=== PATIENT | female | born 1995 | race Two or more races ===

== ENCOUNTER → 2021-05-01 | Emergency (ER) | payer MEDICAID ==
[~2021-05-01] VITALS: Ht 152.4 cm; Wt 67.6 kg
[~2021-05-01] MED LIST: IBUP600T27 PO
[2021-05-01 17:51] VITALS: BP 108/62
== END | disposition home or self-care (01) ==
LOC: ER 17:31
DX: G56.01 Carpal tunnel syndrome, right upper limb (principal)
CPT/HCPCS: 29125

== ENCOUNTER 2021-10-14 19:25 | Emergency (ER) | payer MEDICAID ==
[~2021-10-14] VITALS: Ht 152.4 cm; Wt 66.4 kg
[2021-10-14 21:35] LABS: Albumin 4.2 g/dL (3.4-5.0); BUN/Creatinine Ratio 10.9; Potassium 3.5 mmol/L (3.5-5.1)
[2021-10-14 21:38] LABS: Bilirubin, Total 0.4 mg/dL (0.2-1.0); Total Protein 8.2 g/dL (6.4-8.2)
[2021-10-14 23:07] VITALS: BP 108/69
== END 2021-10-14 23:12 | disposition home or self-care (01) ==
LOC: ER 19:25
DX: R00.2 Palpitations (principal); Z79.1 Long term (current) use of non-steroidal anti-inflammatories (NSAID)
CPT/HCPCS: 36415; 71045; 80053; 84702; 93005

== ENCOUNTER 2022-05-28 19:44 | Emergency (ER) | payer MEDICAID, OTHER ==
[~2022-05-28] VITALS: Ht 152.4 cm; Wt 69.4 kg
[2022-05-28 22:02] VITALS: BP 98/53
== END 2022-05-28 22:24 | disposition home or self-care (01) ==
LOC: ER 19:44
DX: S93.401A Sprain of unspecified ligament of right ankle, initial encounter (principal); Z79.1 Long term (current) use of non-steroidal anti-inflammatories (NSAID); X50.1XXA Overexertion from prolonged static or awkward postures, initial encounter; Y93.89 Activity, other specified; Y92.89 Other specified places as the place of occurrence of the external cause; Y99.8 Other external cause status
CPT/HCPCS: 73600; 81025